=== PATIENT | female | born 1955 | race Caucasian/White ===

== ENCOUNTER 2016-06-15 15:18 | Emergency (ER) | payer OTHER ==
[~2016-06-15] VITALS: Ht 165.1 cm; Wt 87.5 kg
[~2016-06-15 15:18] MED LIST: CEPH-264 PO; HYDR-971 PO; IBUP-1060 PO; PROM25TA10 PO
[2016-06-15] MEDS ORDERED: IV NORMAL SALINE 1000ML BAG 1,000 ML IV SCH (15:41)
[2016-06-15] MEDS ORDERED: FENTANYL PF 100 MCG/2 ML VIAL. IV PRN (15:45)
[2016-06-15] MEDS ORDERED: KETOROLAC TROMETHAMINE 30 MG/ML SYRINGE. IV ONE (15:45)
[2016-06-15 15:48] LABS: BASO # 0.1 x10^3/uL (0.0-0.2); BASO % 1 % (0-3); EOS % 1 % (0-3); HEMOGLOBIN 13.2 g/dL (12.0-15.5); LYMPH # 1.6 x10^3/uL (1.0-4.8); LYMPH % 14 % (24-48); MEAN CORPUSCULAR HEMOGLOBIN 28 pg (25-35); MEAN CORPUSCULAR HGB CONC 33 g/dL (31-37); MEAN CORPUSCULAR VOLUME 84 fL (79-100); MONO % 12 % (0-9); NEUT % 72 % (31-73); PLATELET COUNT 307 x10^3/uL (140-400); RED BLOOD COUNT 4.76 x10^6/uL (3.50-5.40); RED CELL DISTRIBUTION WIDTH 14.7 % (11.5-14.5); WHITE BLOOD COUNT 11.3 x10^3/uL (4.0-11.0)
[2016-06-15 16:02] LABS: CREATININE 0.8 mg/dL (0.6-1.0); GFR 73.4
[2016-06-15 16:05] LABS: BILIRUBIN,URINE NEGATIVE (NEG); GLUCOSE,URINE NEGATIVE (NEG); NITRITE,URINE NEGATIVE (NEG); PH,URINE 7.5; PROTEIN,URINE NEGATIVE (NEG-TRACE); UROBILINOGEN,URINE 0.2 mg/dL (0.2 mg/dL)
[2016-06-15 16:07] LABS: ALBUMIN 3.8 g/dL (3.4-5.0); ALBUMIN/GLOBULIN RATIO 0.9 (1.0-1.7); TOTAL BILIRUBIN 0.4 mg/dL (0.2-1.0); TOTAL PROTEIN 7.9 g/dL (6.4-8.2)
[2016-06-15 16:10] LABS: BARBITURATES NEG (NEG); BENZODIAZEPINES NEG (NEG); CANNABINOIDS NEG (NEG); COCAINE NEG (NEG); METHADONE NEG (NEG); OPIATES NEG (NEG); PHENCYCLIDINE NEG (NEG)
[2016-06-15 16:14] LABS: ETHANOL, URINE NEG (NEG)
[2016-06-15 16:15] LABS: BACTERIA,URINE MODERATE /HPF (0-FEW)
--- NOTE | 2016-06-15 17:07 | RAD ---
CT scan of the abdomen and pelvis without contrast 06/15/2016 Clinical history: Left lower quadrant abdominal pain. Technique: Unenhanced, contiguous, 2 mm axial sections were obtained through the abdomen and pelvis. One or more of the following individualized dose reduction techniques were utilized for this study: 1. Automated exposure control. 2. Adjustment of the mA and/or kV according to patient size. 3. Use of iterative reconstruction technique. Findings: Comparison study is dated 05/17/2015. Images through the lung bases demonstrate the heart to be borderline enlarged. Dependent subsegmental atelectasis is seen bilaterally. The liver, spleen, pancreas, antigen glands are within normal limits. No renal or ureteral calculus is seen. There is no evidence of obstruction of either collecting system. The abdominal aorta tapers normally. Surgical clips are seen within the gallbladder fossa consistent with a cholecystectomy. No free fluid or free air is seen within the abdomen. There is no evidence of bowel obstruction. The appendix is well visualized and is within normal limits. Multiple diverticula are seen involving the descending and sigmoid colon. Wall thickening of the proximal sigmoid colon is seen. Increased density is seen within the adjacent fat. These findings are consistent with sigmoid diverticulitis. No abscess is seen. Images through the pelvis demonstrate a urinary bladder distended with urine. Calcifications are seen within the pelvis consistent with phleboliths. No adnexal mass is seen. No abnormal fluid collection is noted. The osseous structures are unchanged. Impression: Findings consistent with sigmoid diverticulitis. No abscess is seen.
[2016-06-15] MEDS: ONDANSETRON PF 4 MG/2 ML VIAL. IV ONE (18:00)
[2016-06-15] MEDS ORDERED: FENTANYL PF 100 MCG/2 ML VIAL. IV ONE (18:00)
[2016-06-15 19:15] VITALS: BP 105/67
[2016-06-15] MEDS ORDERED: CIPR500T94 PO (19:37)
[2016-06-15] MEDS ORDERED: HYDR-971 PO (19:37)
[2016-06-15] MEDS ORDERED: METR250T3 PO (19:37)
[2016-06-15] MEDS ORDERED: ONDA4TAB10 SL (19:37)
--- NOTE | 2016-06-15 19:37 | PHYS DOC ---
Past Medical History Past Medical History: Kidney Stone, Other Additional Past Medical Histor: KIDNEY INFECTION Past Surgical History: Cholecystectomy, , Other Additional Past Surgical Histo: knee surgery Alcohol Use: None Drug Use: None Adult General Chief Complaint Chief Complaint: ABDOMINAL PAIN HPI HPI Patient is a 61 year old female who presents to the ED with her complaining of left lower quadrant abdominal pain. The pain started at 4 AM today and has increased as the day went on. It does not wax and wane, it has been with her all day. She's had chills but no fever. She can't get a comfortable position. She's had nausea but no vomiting. She did have a bowel movement that did not change the pain. No blood in her stool. She hasn't had no UTI symptoms. She was seen here about a year ago with a similar pain, they state CT scan did not show a stone but showed evidence that she recently had had a stone, they believe that she passed a stone one time since then when they were out of town. Patient has had a hysterectomy and had one ovary removed, she doesn't know which one. Also has had her gallbladder removed. She does not have chronic medical problems, no primary care physician, she has not had a screening colonoscopy. Review of Systems Review of Systems Constitutional: Denies fever or chills [] Eyes: Denies change in visual acuity, redness, or eye pain [] HENT: Denies nasal congestion or sore throat [] Respiratory: Denies cough or shortness of breath [] Cardiovascular: Denies chest pain GI: As in history of present illness : Denies dysuria or hematuria [] Musculoskeletal: Denies back pain or joint pain [] Integument: Denies rash or skin lesions [] Neurologic: Denies headache, focal weakness or sensory changes [] Current Medications Current Medications Current Medications Medications (Trade) Dose Ordered Sig/Eze Start Time Stop Time Status Last Admin Dose Admin Fentanyl Citrate (Fentanyl 2ml Vial) 75 mcg 1X ONCE 06/15/16 18:00 06/15/16 18:01 DC 06/15/16 19:33 75 MCG Fentanyl Citrate 50 mcg 50 mcg PRN Q15MIN PRN 06/15/16 15:45 06/15/16 19:51 DC 06/15/16 16:00 50 MCG Ketorolac Tromethamine 30 mg 30 mg 1X ONCE 06/15/16 15:45 06/15/16 15:46 DC 06/15/16 15:59 30 MG Levofloxacin/ Dextrose (LEVAQUIN 500mg PREMIX) 100 ml @ 100 mls/hr 1X ONCE 06/15/16 18:00 06/15/16 18:59 DC 06/15/16 18:20 100 MLS/HR Ondansetron HCl (Zofran) 4 mg 1X ONCE 06/15/16 18:00 06/15/16 18:01 DC 06/15/16 18:00 4 MG Sodium Chloride (Iv Sodium Chloride 0.9% 1000ml Bag) 1,000 ml @ 1,000 mls/hr Q1H 06/15/16 15:41 06/15/16 16:40 DC 06/15/16 15:59 1,000 MLS/HR Allergies Allergies Allergies Coded Allergies Type Severity Reaction Last Updated Verified morphine Allergy Intermediate 05/17/15 Yes Physical Exam Physical Exam Constitutional: Well developed, well nourished, tearful, appears uncomfortable but not colicky HENT: Normocephalic, atraumatic, bilateral external ears normal, nose normal. [] Eyes: conjunctiva normal, no discharge. [] Neck: Normal range of motion, no stridor. [] Cardiovascular:Heart rate regular rhythm, no murmur [] Lungs & Thorax: Bilateral breath sounds clear to auscultation [] Abdomen: Bowel sounds quiet, nondistended, soft, tender only in the left lower quadrant, significantly tender but no rebound or guarding. Skin: Warm, dry, no erythema, no rash. [] Back: No tenderness, no CVA tenderness. [] Extremities: No tenderness, no cyanosis, no clubbing, ROM intact, no edema. [] Neurologic: Alert and oriented X 3, normal motor function, normal sensory function, no focal deficits noted. [] Current Patient Data Vital Signs Vital Signs Date Time Temp Pulse Resp B/P Pulse Ox O2 Delivery O2 Flow Rate FiO2 06/15/16 19:15 99 16 105/67 99 Room Air 06/15/16 15:29 98.3 98.3 Lab Values Laboratory Tests Test 06/15/16 15:30 06/15/16 15:55 White Blood Count 11.3x10^3/uL (4.0-11.0) H Red Blood Count 4.76x10^6/uL (3.50-5.40) Hemoglobin 13.2g/dL (12.0-15.5) Hematocrit 40.0% (36.0-47.0) Mean Corpuscular Volume 84fL (79-100) Mean Corpuscular Hemoglobin 28pg (25-35) Mean Corpuscular Hemoglobin Concent 33g/dL (31-37) Red Cell Distribution Width 14.7% (11.5-14.5) H Platelet Count 307x10^3/uL (140-400) Neutrophils (%) (Auto) 72% (31-73) Lymphocytes (%) (Auto) 14% (24-48) L Monocytes (%) (Auto) 12% (0-9) H Eosinophils (%) (Auto) 1% (0-3) Basophils (%) (Auto) 1% (0-3) Neutrophils # (Auto) 8.1x10^3uL (1.8-7.7) H Lymphocytes # (Auto) 1.6x10^3/uL (1.0-4.8) Monocytes # (Auto) 1.4x10^3/uL (0.0-1.1) H Eosinophils # (Auto) 0.2x10^3/uL (0.0-0.7) Basophils # (Auto) 0.1x10^3/uL (0.0-0.2) Sodium Level 138mmol/L (136-145) Potassium Level 4.0mmol/L (3.5-5.1) Chloride Level 100mmol/L (98-107) Carbon Dioxide Level 26mmol/L (21-32) Anion Gap 12 (6-14) Blood Urea Nitrogen 16mg/dL (7-20) Creatinine 0.8mg/dL (0.6-1.0) Estimated GFR (Cockcroft-Gault) 73.4 BUN/Creatinine Ratio 20 (6-20) Glucose Level 102mg/dL (70-99) H Calcium Level 10.0mg/dL (8.5-10.1) Total Bilirubin 0.4mg/dL (0.2-1.0) Aspartate Amino Transferase (AST) 25U/L (15-37) Alanine Aminotransferase (ALT) 36U/L (14-59) Alkaline Phosphatase 91U/L (46-116) Total Protein 7.9g/dL (6.4-8.2) Albumin 3.8g/dL (3.4-5.0) Albumin/Globulin Ratio 0.9 (1.0-1.7) L Lipase 133U/L (73-393) Urine Collection Type U cath Urine Color Yellow Urine Clarity Clear Urine pH 7.5 Urine Specific [place] <=1.005 Urine Protein Negativemg/dL (NEG-TRACE) Urine Glucose (UA) Negativemg/dL (NEG) Urine Ketones (Stick) Tracemg/dL (NEG) Urine Blood Trace (NEG) Urine Nitrite Negative (NEG) Urine Bilirubin Negative (NEG) Urine Urobilinogen Dipstick 0.2mg/dL (0.2 mg/dL) Urine Leukocyte Esterase Trace (NEG) Urine RBC 3-5/HPF (0-2) Urine WBC 5-10/HPF (0-4) Urine Bacteria Moderate/HPF (0-FEW) Urine Opiates Screen Neg (NEG) Urine Methadone Screen Neg (NEG) Urine Barbiturates Neg (NEG) Urine Phencyclidine Screen Neg (NEG) Urine Amphetamine/Methamphetamine Neg (NEG) Urine Benzodiazepines Screen Neg (NEG) Urine Cocaine Screen Neg (NEG) Urine Cannabinoids Screen Neg (NEG) Urine Ethyl Alcohol Neg (NEG) Laboratory Tests 06/15/16 15:30 Laboratory Tests 06/15/16 15:30 EKG EKG [] Radiology/Procedures Radiology/Procedures CT scan of the abdomen and pelvis read by the radiologist. No renal or ureteral stone. Sigmoid diverticulitis without abscess. [] Course & Med Decision Making Course & Med Decision Making Pertinent Labs and Imaging studies reviewed. (See chart for details) 61-year-old female presents with left lower quadrant abdominal pain since this morning. Evaluation reveals that the patient has sigmoid diverticulitis. She does not have a UTI and has no evidence of renal or ureteral stone. I discussed the diagnosis with the patient and her family members. I discussed the options for admission versus discharge to home for oral antibiotics. The patient felt strongly that she wanted to try to go home. She has had some nausea and we decided to give her first dose of antibiotics IV here in the emergency department prior to discharge. Return precautions were given. If she begins to have vomiting or feels worse, with worse pain or with high fever, she should return to ED for admission. She understands that. [] Hien Disclaimer Hien Disclaimer This electronic medical record was generated, in whole or in part, using a voice recognition dictation system. Departure Departure Impression: Primary Impression: Diverticulitis of sigmoid colon Disposition: HOME, SELF-CARE Condition: STABLE Referrals: NO PCP (PCP) Patient Instructions: Diverticulitis, [id number] Additional Instructions: Plan to rest at home for 2-3 days, getting plenty of rest, eating small meals of clear liquids to bland foods. If you get worse, fevers, pain worsens, vomiting, return for admission to the hospital. As we discussed, I recommend following up with a primary care doctor to discuss your general health and diverticulitis. I strongly recommend consideration of a screening colonoscopy after you are well from this episode of diverticulitis. Scripts Ondansetron (Zofran Odt)4 Mg Tab.rapdis1 Tab SL Q8HRS #10 TAB As needed for nausea Prov:KIZZY ASH MD 06/15/16 Hydrocodone/Apap 5-325 ([place] 5-325 Tablet)1 Each Tablet1-2 Tab PO Q4-6HRS #20 TAB As needed for pain For diverticulitis This is an opiate, not while driving Prov:KIZZY ASH MD 06/15/16 Metronidazole 250 Mg Tablet1 Tab PO TID #30 TAB For diverticulitis Prov:KIZZY ASH MD 06/15/16 Ciprofloxacin Hcl (Cipro)500 Mg Tablet1 Tab PO BID #20 TAB For diverticulitis Prov:KIZZY ASH MD 06/15/16 KIZZY ASH MD Jun 15, 2016 19:37
== END 2016-06-15 19:51 | disposition home or self-care (01) ==
LOC: ER 15:18
DX: K57.32 Diverticulitis of large intestine without perforation or abscess without bleeding (principal); Z87.442 Personal history of urinary calculi; Z90.49 Acquired absence of other specified parts of digestive tract; Z90.710 Acquired absence of both cervix and uterus; Z90.721 Acquired absence of ovaries, unilateral; Z88.5 Allergy status to narcotic agent
CPT/HCPCS: 36415; 74176; 80053; 81001; 83690; 85027; 87086; 96361; 96365; 96375; 96376; 99285; G0481; J1885; J1956; J2405; J3010; J7030; 87186

== ENCOUNTER 2017-06-03 18:54 | Emergency (ER) | payer OTHER ==
[2017-06-03 19:19] LABS: BILIRUBIN,URINE NEGATIVE (NEG); CLARITY,URINE CLEAR; COLOR,URINE YELLOW; GLUCOSE,URINE NEGATIVE (NEG); NITRITE,URINE NEGATIVE (NEG); PH,URINE 5.5; PROTEIN,URINE NEGATIVE (NEG-TRACE); UROBILINOGEN,URINE 0.2 mg/dL (0.2 mg/dL)
[2017-06-03 19:25] LABS: BACTERIA,URINE MODERATE /HPF (0-FEW); RBC,URINE RARE /HPF (0-2); SQUAMOUS EPITHELIAL CELL,UR MOD /LPF
[2017-06-03 19:35] LABS: BASO % 1 % (0-3); EOS % 0 % (0-3); HEMATOCRIT 37.2 % (36.0-47.0); HEMOGLOBIN 12.6 g/dL (12.0-15.5); LYMPH # 1.1 x10^3/uL (1.0-4.8); LYMPH % 11 % (24-48); MEAN CORPUSCULAR HEMOGLOBIN 28 pg (25-35); MEAN CORPUSCULAR HGB CONC 34 g/dL (31-37); MEAN CORPUSCULAR VOLUME 83 fL (79-100); MONO # 1.9 x10^3/uL (0.0-1.1); MONO % 19 % (0-9); NEUT # 6.9 x10^3uL (1.8-7.7); NEUT % 69 % (31-73); PLATELET COUNT 244 x10^3/uL (140-400); RED BLOOD COUNT 4.47 x10^6/uL (3.50-5.40); RED CELL DISTRIBUTION WIDTH 14.6 % (11.5-14.5); WHITE BLOOD COUNT 9.9 x10^3/uL (4.0-11.0)
[2017-06-03] MEDS: IV NORMAL SALINE 1000ML BAG 1,000 ML IV ×2 (19:35)
[2017-06-03 19:39] LABS: ADD MAN DIFF? YES
[2017-06-03 19:42] LABS: ANION GAP 11 (6-14); BLOOD UREA NITROGEN 13 mg/dL (7-20); BUN/CREATININE RATIO 13 (6-20); CALCIUM 9.3 mg/dL (8.5-10.1); CARBON DIOXIDE 25 mmol/L (21-32); CHLORIDE 97 mmol/L (98-107); GFR 56.6; GLUCOSE 103 mg/dL (70-99); POTASSIUM 4.1 mmol/L (3.5-5.1); SODIUM 133 mmol/L (136-145)
[2017-06-03 19:47] LABS: ALBUMIN/GLOBULIN RATIO 0.7 (1.0-1.7); ALK PHOS 76 U/L (46-116); ALT (SGPT) 36 U/L (14-59); AST (SGOT) 30 U/L (15-37); LIPASE 93 U/L (73-393); TOTAL BILIRUBIN 0.2 mg/dL (0.2-1.0); TOTAL PROTEIN 7.1 g/dL (6.4-8.2)
[2017-06-03 20:28] LABS: % ATYL 3 % (0-0); % BANDS 3 % (0-9); % LYMPHS 16 % (24-48); % MONOS 11 % (0-10); % SEGS 67 % (35-66); PLT ESTIMATE ADEQUATE (ADEQUATE)
[2017-06-03] MEDS: KETOROLAC 30 MG/ML INJ. IV ×2 (20:29)
[2017-06-03] MEDS: ONDANSETRON PF 4 MG/2 ML VIAL. IV ×2 (20:29)
== END 2017-06-03 21:14 | disposition home or self-care (01) ==
LOC: ER 18:54
DX: N39.0 Urinary tract infection, site not specified (principal); R05 Cough; R19.7 Diarrhea, unspecified; Z88.5 Allergy status to narcotic agent; Z87.442 Personal history of urinary calculi; Z90.49 Acquired absence of other specified parts of digestive tract
CPT/HCPCS: 36415; 74176; 80053; 81001; 83690; 85007; 85025; 87086; 87186; 96361; 96374; 96375; 99285-25; J1885; J2405; J7030